=== PATIENT | female | born 1990 | race African-American/Black ===

== ENCOUNTER 2017-12-24 08:40 | Emergency (ER) | payer OTHER ==
[~2017-12-24] VITALS: Ht 160 cm; Wt 56.2 kg
[~2017-12-24 08:40] MED LIST: DIFLUCAN150 M1 PO; NOHOMEMEDICATIONS
[2017-12-24] MEDS ORDERED: ACETAMINOPHEN-1 EAC1 PO (08:49)
[2017-12-24] MEDS ORDERED: NAPROSYN500 MG PO (08:49)
[2017-12-24] MEDS ORDERED: MOBIC15 MG PO (10:14)
[2017-12-24 10:35] VITALS: BP 117/79
== END 2017-12-24 10:35 | disposition home or self-care (01) ==
LOC: ER 08:40
DX: N64.4 Mastodynia (principal); S39.012A Strain of muscle, fascia and tendon of lower back, initial encounter; V89.2XXA Person injured in unspecified motor-vehicle accident, traffic, initial encounter; Y93.89 Activity, other specified; Y92.89 Other specified places as the place of occurrence of the external cause; Y99.8 Other external cause status